=== PATIENT | male | born 1980 | race Caucasian/White ===

== ENCOUNTER 2023-08-24 11:56 | Emergency (ER) | payer OTHER | END 2023-08-24 12:54 | disposition left against medical advice (07) | LOC: MW.ED 11:56 | DX: G47.9 Sleep disorder, unspecified (principal); Z76.5 Malingerer [conscious simulation]; F17.210 Nicotine dependence, cigarettes, uncomplicated | CPT/HCPCS: 99281; 99283 ==

== ENCOUNTER 2024-08-24 06:18 | Emergency (ER) | payer SELFPAY | END 2024-08-24 06:25 | disposition left against medical advice (07) | LOC: MW.ED 06:18 | DX: Z53.21 Procedure and treatment not carried out due to patient leaving prior to being seen by health care provider (principal) ==

== ENCOUNTER 2024-08-24 07:20 | Emergency (ER) | payer MEDICAID ==
[2024-08-24] MEDS: Nicotine 21 MG/24 Hr Patch TRDERM ONE (08:24)
== END 2024-08-24 08:46 | disposition home or self-care (01) ==
LOC: MW.ED 07:20
DX: F99 Mental disorder, not otherwise specified (principal); F17.210 Nicotine dependence, cigarettes, uncomplicated; Z79.899 Other long term (current) drug therapy; Z75.8 Other problems related to medical facilities and other health care; Z59.00 Homelessness unspecified
CPT/HCPCS: 99283; A9270